=== PATIENT | female | born 1980 | race African-American/Black ===

== ENCOUNTER 2017-03-04 14:09 | Emergency (ER) | payer MEDICARE, MEDICAID ==
[~2017-03-04] VITALS: Ht 162.6 cm; Wt 150.0 kg
[~2017-03-04 14:09] MED LIST: AMOXICILLIN500 MG PO; BACTRIM DS1 TAB OR; CIPROFLOXACN500 MG PO; CORTISPORIN OTI10 ML AD; MULTIVITAL OR; TAM75CAP PO
[2017-03-04 14:41] LABS: HEMATOCRIT 39.2 % (37.0-47.0); HEMOGLOBIN 11.3 g/dl (12.0-16.0); IMMATURE GRANULOCYTES 0.3 % (0.0-1.0); MEAN CORPUSCULAR HGB 21.6 pG CALC (26.0-32.0); MEAN CORPUSCULAR HGB CONC 28.8 g/L CALC (32.0-36.0); NEUT# 8.37 thou/uL (2.00-7.15); RED BLOOD COUNT 5.23 mill/uL (4.20-5.60); RED CELL DISTRI WIDTH 17.6 % (11.5-15.5)
[2017-03-04 14:58] LABS: ANION GAP 15 (6-22 (CALC)); BUN 12 mg/dL (7-17); BUN/CREATININE RATIO 15 (12-20 (CALC)); CALCIUM 9.6 mg/dL (8.4-10.2); CARBON DIOXIDE 28 mmol/l (22-30); CHLORIDE 105 mmol/l (95-108); CHOLESTEROL HDL RATIO 3.5 (<4.4 (CALC)); CREATININE 0.8 mg/dL (0.5-1.0); GFR > 60 ML/MIN (>=60 (CALC)); GFR FOR AFR.AMER. > 60 ML/MIN (>=60 (CALC)); GLUCOSE 90 mg/dL (65-105); POTASSIUM 4.3 mmol/l (3.5-5.1); SODIUM 144 mmol/l (137-146)
[2017-03-04 15:29] LABS: TSH, 3RD GENERATION 1.06 uIU/mL (0.47 - 4.68)
[2017-03-04 16:13] VITALS: BP 165/93
== END 2017-03-04 16:22 | disposition home or self-care (01) ==
LOC: ED 14:09
PROVIDERS: Family Medicine
DX: R07.89 Other chest pain (principal)